=== PATIENT | female | born 1955 | race Caucasian/White ===

== ENCOUNTER 2017-04-23 07:07 | Day surgery (SDC) | payer BC ==
--- NOTE | 2017-04-21 07:13 | HP ---
HISTORY AND PHYSICAL: DATE OF ADMISSION/SURGERY: 04/23/17 SURGEON: Roxana Bains MD * (DICTATED BY JONATHON SEGOVIA) PROCEDURE: Left knee arthroscopy with partial medial meniscectomy, possible chondroplasty, possible synovectomy. CHIEF COMPLAINT: Left knee pain. HISTORY OF PRESENT ILLNESS: Ms. Richardson is a 62-year-old female who complains of left knee pain and MRI confirms medial meniscus tear and she has elected to proceed with surgery. PAST MEDICAL HISTORY: Hypertension and anxiety. PAST SURGICAL HISTORY: 1. . 2. D and C. CURRENT MEDICATIONS: 1. Metoprolol 100 mg daily. 2. Lisinopril 20 mg daily. 3. Vitamin D. 4. Calcium. ALLERGIES: None. FAMILY HISTORY: Hypertension and colon cancer. SOCIAL HISTORY: She is a 62-year-old female, she lives with her . She does not smoke or use drugs. Uses occasional alcohol. REVIEW OF SYSTEMS: A complete 14-point review of systems was reviewed with the patient, was all negative or noncontributory. PHYSICAL EXAMINATION GENERAL: She is well developed, well nourished, in no acute distress. VITAL SIGNS: She stands 5 feet 3 inches tall, weighs 177 pounds. Her blood pressure is 140/76. Her heart rate is 69. HEENT: Normocephalic, atraumatic. NECK: Supple. No palpable lymph nodes. PULMONARY: The lungs are clear to auscultation bilaterally. CARDIO: Regular rate and rhythm. Strong S1, S2. ABDOMEN: Soft, nontender, nondistended. NEUROLOGICAL: She is alert and oriented x3. Cranial nerves II through XII are intact. MUSCULOSKELETAL: Left lower extremity, the skin is intact. She has no open wounds or abrasions. She has some tenderness along the medial joint line, 10 to 125 degrees of flexion, positive Apley's and Madelaine's. No varus or valgus instability. Negative Christina. 2+ dorsalis pedis pulses, intact sensation and her lower extremities muscle group strengths are intact at 5/5. ASSESSMENT AND PLAN: Ms. Richardson is a 62-year-old female with complaints of left knee pain secondary to a medial meniscus tear. She has elected to proceed with surgery. The surgery is scheduled for 04/23/[address] Bains discussed the risks and benefits of the surgery at today's visit and all of her questions were answered. She will follow up with Dr. Bains 2 weeks after the surgery. JONATHON SEGOVIA [id number]/[facility] #: [id number] JACINDA
[~2017-04-23 07:07] MED LIST: Buffered Lidocaine 0.9% SYRIN* 5 ML/SYR SYRINGE INTRADERM ONE; DiMENhydriNATE IV* 50 MG/ML VIAL IV PUSH PRN; Famotidine IV* 10 MG/ML 2 ML (20 mg) IV ONE; Morphine INJ* 2 MG/ML 1 ML CARPUJECT IV PRN; Naloxone* 0.4 MG/ML 1 ML VIAL IV PRN; PROCHLORPERAZINE INJ 5 MG/ML 2 ML VIAL IV PRN; fentaNYL* 50 MCG/ML 2 ML VIAL (100 MCG VIAL) IV PRN; oxyCODONE/Acetamin 5/325 MG* TAB PO PRN
[2017-04-23] MEDS ORDERED: methylPREDNISolone ACETATE 80* 80 MG/ML 1 ML VIAL ONE (07:09)
[2017-04-23] MEDS ORDERED: EPINEPHRINE 1 MG/ML 1 ML VIAL ONE (07:09)
[2017-04-23] MEDS ORDERED: Bupivacaine 0.5% SDV PF* 10-30ML VIAL ONE (07:10)
[2017-04-23] MEDS ORDERED: Famotidine IV* 10 MG/ML 2 ML (20 mg) ONE (07:13)
[2017-04-23] MEDS ORDERED: Buffered Lidocaine 0.9% SYRIN* 5 ML/SYR SYRINGE ONE (07:14)
[2017-04-23] MEDS ORDERED: Midazolam* 1 MG/ML 10 ML VIAL (10 MG) ONE (07:37)
[2017-04-23] MEDS ORDERED: KETAMINE HCL* 50 MG/ML 10 ML VIAL ONE (07:37)
[2017-04-23] MEDS ORDERED: fentaNYL* 50 MCG/ML 2 ML VIAL (100 MCG VIAL) ONE ×2 (07:37→09:01)
[2017-04-23] MEDS ORDERED: ceFAZolin 2 GM PREMIX (*) 2 GM/50 ML BAG IVPB ONE (08:00)
[2017-04-23] MEDS ORDERED: Dexamethasone IV* 4 MG/ML 1 ML (4 MG) ONE (08:26)
[2017-04-23] MEDS ORDERED: Propofol* 10 MG/ML 20 ML BTL IV PUSH ONE (08:26)
[2017-04-23] MEDS ORDERED: Ketorolac INJ* 30 MG/ML 1 ML VIAL ONE (08:26)
[2017-04-23] MEDS ORDERED: Metoprolol Tartrate IV* 1 MG/ML 5 ML VIAL ONE (08:26)
[2017-04-23] MEDS ORDERED: Labetalol IV* 5 MG/ML 20 ML VIAL ONE (08:26)
[2017-04-23] MEDS ORDERED: Ondansetron INJ* 2 MG/ML VIAL ONE (08:26)
[2017-04-23] MEDS ORDERED: oxyCODONE/Acetamin 5/325 MG* TAB ONE (09:48)
[2017-04-23 10:17] VITALS: BP 154/87
--- NOTE | 2017-04-24 02:45 | OP ---
DATE OF OPERATION: 04/23/17 - [facility] DATE OF : 51 ATTENDING SURGEON: Roxana Bains MD HOOK TENDER: JONATHON Augustine. Mr. Wright did help throughout the procedure with preparation of the leg, wound retraction, manipulation of the knee, and wound closure. ANESTHESIOLOGIST: Dr. Downing. ANESTHESIA: General. PRE-OP DIAGNOSES: Left knee medial meniscal tear and mild degenerative osteoarthritis. POST-OP DIAGNOSES: Left knee displaced parrot beak type tear of the medial meniscus, mild to moderate degenerative osteoarthritis, inflamed medial plica. OPERATIVE PROCEDURE: Left knee arthroscopy, partial medial meniscectomy, and medial plica excision. COMPLICATIONS: None. SPECIMEN: None. ESTIMATED BLOOD LOSS: Less than 25 cc. BRIEF HISTORY/INDICATION: Ms. Richardson is a 62-year-old female with acute onsets of left knee pain and meniscal symptoms. MRI confirmed a medial meniscal tear. Plain film showed some arthritic changes. She failed conservative treatment and elected to undergo left knee arthroscopy due to continued pain and decreased quality of life. Informed consent was obtained from the patient. She understood the risks of surgery, included but were not limited to bleeding, infection, damage to nearby structures, continued pain, need for further surgery , retear of the meniscus, progression of arthritis and pain, stroke, heart attack, blood clot, and . She wished to proceed. INTRAOPERATIVE FINDINGS: Intraoperatively, the patient was noted to have a large, displaced parrot beak type tear of the mid portion of the medial meniscus that was flipped into the capsular recess. The tear was mainly in the white-red zone. She was also noted to have some grade 1 and 2 Outerbridge cartilage changes in the medial and patellofemoral compartment. She had a large inflamed medial plica that did impinge in patellofemoral compartment with range of motion. DESCRIPTION OF PROCEDURE: Ms. Richardson was identified in the preanesthesia unit. Her left lower extremity was marked as the correct operative side. Informed consent was signed and placed in the chart. The patient was taken to the operating room and placed under general anesthesia. Left lower extremity was prepped and draped in the usual sterile fashion. Preop time-out was made to correctly identify the patient's side and site. Appropriate perioperative antibiotics were given within 1 hour of incision. A standard 0.5 cm anterolateral portal incision was made with a 15 blade and carried down to the capsule. Trocar was introduced. As soon as the light and water sources were turned on, there was immediately visualization of the suprapatellar pouch. A tour of the knee joint was performed. Suprapatellar pouch had no obvious abnormalities. Patellofemoral compartment showed some minimal degenerative changes, these were grade 1 and 2 Outerbridge cartilage changes. Medial gutter showed an inflamed medial plica, this plica did impinge with range of motion during patellofemoral tracking. Medial gutter had no obvious loose bodies. The medial compartment showed some grade 1 and 2 Outerbridge cartilage changes of the medial femoral condyle cartilage. There was an obvious tear along the mid portion of the medial meniscus. ACL and PCL appeared to be intact. The knee was placed in a [id number] position. No significant degenerative changes in the lateral compartment. No obvious meniscal tear. Lateral gutter showed no visible plica or loose body. Under direct visualization, a medial portal incision was made with a 15 blade. A probe was introduced and a second tour of the knee joint was performed. ACL and PCL were intact. Probing of the medial meniscus immediately reduced a large parrot beak type tear into the medial compartment joint space. This had been flipped into the capsular recess. Straight biter and shaver were used to perform partial medial meniscectomy in the midportion of the medial meniscus largely in the white-red zone. Radiofrequency ablation wand was used to smooth this edge once the partial meniscectomy had been performed. Further probing of the medial meniscus showed no additional meniscal tears. Next, the shaver and radiofrequency ablation wand were used to conservatively excise the inflamed plica medially until there was no further impingement with range of motion of the knee. The knee was copiously irrigated with sterile saline. All instruments were removed. The incisions were closed using 3-0 nylon suture. Intra-articular injection of 80 mg Depo-Medrol and 6 cc of 0.25% Marcaine was placed in the knee joint. Incisions were covered with sterile Xeroform, 4x4s, and Webril. Steve wrap and cold pack were placed over this. The patient's anesthesia was reversed without difficulty. She was taken to the PACU in stable condition. Intended weightbearing will be weightbearing as tolerated. Intended DVT prophylaxis will be aspirin for 2 weeks. [id number]/[facility] #: [id number] MTDD
== END 2017-04-23 10:21 | disposition home or self-care (01) ==
LOC: OR 07:07
PROVIDERS: ATTEND Orthopaedic Surgery Adult Reconstructive Orthopaedic Surgery
DX: S83.242A Other tear of medial meniscus, current injury, left knee, initial encounter (principal); M67.52 Plica syndrome, left knee; I10 Essential (primary) hypertension; F41.9 Anxiety disorder, unspecified; X58.XXXA Exposure to other specified factors, initial encounter; Y92.9 Unspecified place or not applicable
CPT/HCPCS: A9270-GY; J0690; J1040; J1100; J1885; J2250; J2405; J2704; J3010; J3490

== ENCOUNTER 2018-08-26 17:43 | Emergency (ER) | payer MEDICARE, BC ==
[2018-08-26 18:36] VITALS: BP 183/114
--- NOTE | 2018-08-26 18:52 | ED ---
Throat Pain/Nasal Congestion - HPI Summary HPI Summary: pt presents to the ED with a 3 day hx of sinus pain and congestion. she states that she was not feeling well last week. she had a sore throat. she states that she is just not feeling well. - History of Current Complaint Chief Complaint: UCGeneralIllness Hx Obtained From: Patient Onset/Duration: Gradual Onset Severity: Mild - Allergies/Home Medications Allergies/Adverse Reactions: Allergies Allergy/AdvReac Type Severity Reaction Status Date / Time erythromycin base Allergy GI Upset Verified 08/26/18 18:28 Home Medications: Home Medications hydrOXYzine HCL TAB* [Atarax 10 MG TAB*] 10 mg PO BEDTIME PRN 08/26/18 [History Confirmed 08/26/18] PMH/Surg Hx/FS Hx/Imm Hx Previously Healthy: Yes Endocrine/Hematology History: Denies: Hx Diabetes Cardiovascular History: Reports: Hx Hypertension - controlled with meds Denies: Hx Pacemaker/ICD Respiratory History: Denies: Hx Asthma Sensory History: Reports: Hx Contacts or Glasses - glasses Denies: Hx Hearing Aid Opthamlomology History: Reports: Hx Contacts or Glasses - glasses Psychiatric History: Reports: Hx Anxiety Denies: Hx Panic Disorder - Cancer History Hx Chemotherapy: No - Surgical History Surgery Procedure, Year, and Place: C SECTION. D & C. Cataract surgery 06/2018 Hx Anesthesia Reactions: No Infectious Disease History: No Infectious Disease History: Denies: Traveled Outside the [place] in Last 30 Days - Social History Alcohol Use: Occasionally Substance Use Type: Reports: None Smoking Status (MU): Former Smoker Amount Used/How Often: smoked about 10 years 1/2ppd Review of Systems Constitutional: Negative Eyes: Negative Positive: Nasal Discharge, Other - sinus congestion, pain to sinuses Cardiovascular: Negative Respiratory: Negative Gastrointestinal: Negative Genitourinary: Negative Musculoskeletal: Negative Skin: Negative Neurological: Negative Psychological: Normal All Other Systems Reviewed And Are Negative: No Physical Exam Triage Information Reviewed: Yes Vital Signs On Initial Exam: Initial Vitals Temp Pulse Resp BP Pulse Ox 98.4 F 102 18 183/114 100 08/26/18 18:24 08/26/18 18:24 08/26/18 18:24 08/26/18 18:24 08/26/18 18:24 Vital Signs Reviewed: Yes Appearance: Positive: Well-Appearing, No Pain Distress, Well-Nourished Skin: Positive: Warm, Dry Head/Face: Positive: Other - tender to palpation of her frontal and maxillary sinuses Eyes: Positive: Normal, EOMI, ESTEFANIA ENT: Positive: Normal ENT inspection, Hearing grossly normal, Pharynx normal Neck: Positive: Supple, Nontender Respiratory/Lung Sounds: Positive: Clear to Auscultation, Breath Sounds Present Cardiovascular: Positive: Normal, RRR Abdomen Description: Positive: Nontender, Soft Bowel Sounds: Positive: Present Musculoskeletal: Positive: Normal, Strength/ROM Intact Neurological: Positive: Normal, Sensory/Motor Intact, Alert, Oriented to Person Place, Time, CN Intact II-III Psychiatric: Positive: Normal AVPU Assessment: Alert Diagnostics - Vital Signs Vital Signs Temp Pulse Resp BP Pulse Ox 08/26/18 18:24 98.4 F 102 18 183/114 100 - Laboratory Lab Statement: Any lab studies that have been ordered have been reviewed, and results considered in the medical decision making process. EENT Course/Dx - Course Course Of Treatment: pt presents with sinus congestion. she is markedly tender to her sinuses. she is congested on exam. will rx for abx to tx sinusitis. pt encouraged to f/u with pcp.. - Diagnoses Provider Diagnoses: Sinusitis Discharge - Sign-Out/Discharge Documenting (check all that apply): Patient Departure All imaging exams completed and their final reports reviewed: No Studies - Discharge Plan Condition: Stable Disposition: HOME Prescriptions: Amoxicillin 500 mg PO TID #21 capsule Patient Education Materials: Sinusitis (ED) Referrals: Rusty BRYANT,Nargis Lamar [Primary Care Provider] - Additional Instructions: take tylenol and motrin for pain. take sudafed for sinus congestion. I sent a prescription for an antibiotic to the pharmacy. follow up with your doctor. - Billing Disposition and Condition Condition: STABLE Disposition: Home
== END 2018-08-26 19:07 | disposition home or self-care (01) ==
LOC: UCCORT 17:43
DX: J32.9 Chronic sinusitis, unspecified (principal); Z88.1 Allergy status to other antibiotic agents; Z87.891 Personal history of nicotine dependence
CPT/HCPCS: 99212; G0463

== ENCOUNTER 2019-05-16 15:51 | Emergency (ER) | payer MEDICARE, BC ==
--- OUTSIDE RECORDS SUMMARY | 2019-05-16 15:59 | XMS REPORT ---
:1955 Author Organization [facility] Address [address] 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 12718917 uteri Problem Family history Z80.41 Active 833381135 of malignant neoplasm of ovary Problem Body mass index Z68.32 Active 717395972528434 (BMI) 32.0-32.9, adult Problem Essential I10 Active 44259730 (primary) hypertension Problem Subacute and N76.3 Active 839444626 chronic vulvitis ALLERGIES Substance Reaction Event Type Date Status erythromycin upset stomach Drug Allergy Mar, Active ENCOUNTERS Encounter Location Date Diagnosis [facility] [address], [place], [place] [id number] [facility] [address] Sep, [place] [id number] [facility] 103 Mar, Family history of OBGYN [facility], malignant neoplasm of [place] [id number] ovary Z80.41 [facility] 103 Mar, Family history of OBGYN [facility], malignant neoplasm of [place] [id number] ovary Z80.41 [facility] 103 Sep, Family history of OBGYN [facility], malignant neoplasm [place] [id number] ovary Z80.41 [facility] 103 Sep, Family history of [facility], malignant [place]oplasm [place] [id number] ovary Z80.41 [facility] July, [place], [place] [id number] [facility] [address] July, Encounter for [facility], gynecological examination [place] [id number] (general) (routine) without abnormal findings Z01.419 ; Encounter for screening for malignant neoplasm of colon Z12.11 and Family history of malignant neoplasm of ovary Z80.[address] Oct, Abnormal findings on [facility] [address] [place], diagnostic imaging of [place] [id number] other specified body structures R93.8 ; Polyp of corpus uteri N84.0 and Benign essential microscopic hematuria R31.1 [place] [address] Oct, Abnormal findings on [facility] [place] [place] [id number] diagnostic imaging of other specified body structures R93.8 ; Postmenopausal bleeding N95.0 and Polyp of corpus uteri N84.0 [facility] 103 Sep, Abnormal findings on [facility], diagnostic imaging of [place] [id number] other specified body structures R93.8 and Polyp of corpus uteri N84.0 [facility] 103 Sep, [place] [id number] [facility] 103 Sep, Abnormal findings on [facility], diagnostic imaging of [place] [id number] other specified body structures R93.8 and Polyp of corpus uteri N84.0 [facility] 103 Aug, Postmenopausal bleeding [facility], N95.0 [place] [id number] [facility] Aug, Abnormal findings on [facility], diagnostic imaging of [place] [id number] other specified body structures R93.8 [facility] 103 Aug, Abnormal findings on OBGYN [facility], diagnostic imaging of [place] [id number] other specified body structures R93.8 [facility] 103 Aug, Abnormal findings on OBGYN [facility], diagnostic imaging of [place] [id number] other specified body structures R93.8 [facility] 103 July, OBGYN [facility], [place] [id number] [facility] 103 July, Family history of OBGYN [facility], malignant neoplasm of [place] [id number] ovary Z80.41 ; Acetonuria R82.4 and Abnormal findings on diagnostic imaging of other specified body structures R93.8 [facility] 103 July, Family history of OBGYN [facility], malignant neoplasm of [place] [id number] ovary Z80.41 and Body mass index (BMI) 32.0-32.9, adult Z68.32 [facility] 103 July, Subacute and chronic OBGYN [facility], vulvitis N76.3 [place] [id number] [facility] 103 Jun, Encounter for [facility], gynecological examination [place] [id number] (general) (routine) with abnormal findings Z01.411 ; Encounter for other screening for malignant neoplasm of breast Z12.39 ; Encounter for screening for malignant neoplasm of colon Z12.11 ; Other abnormal findings in urine R82.99 ; Family history of malignant neoplasm of ovary Z80.41 ; Essential (primary) hypertension I10 ; Body mass index (BMI) 32.0-32.9, adult Z68.32 and Subacute and chronic vulvitis N76.3 [facility] 103 Apr, OBGYN [facility], [place] [id number] [facility] 103 Apr, Encounter for [facility], gynecological examination [place] [id number] (general) (routine) without abnormal findings Z01.419 ; Encounter for screening mammogram for malignant neoplasm of breast Z12.31 and Encounter for screening for malignant neoplasm of colon Z12.11 [facility] [facility] 103 Mar, OBG[place] [id number] [facility] 103 26 Apr, 2015 Encounter for OBGYN [facility], gynecological examination [place] [id number] (general) (routine) without abnormal findings Z01.419 ; Encounter for screening mammogram for malignant neoplasm of breast Z12.31 and Encounter for screening for malignant neoplasm of colon Z12.11 [place] [facility] 103 18 Apr, 2014 ROUTINE WELFARE CENTRE MANAGER EXAMINATION OBGYN [facility], V72.31 ; SCREEN MALIG [place] [id number] NEOP-COLON V76.51 and SCREEN MAMMOGRAM NEC V76.12 [facility] [address] Mar, OBG[place] [id number] [facility] 103 July, [facility] [place] [id number] [place] [address] July, [place], [place] [id number] [facility] 103 Jun, OBGYN [place] [id number] [facility] 103 16 Jun, 2013 Postmenopausal bleeding OBN [facility], 627.1 [place] [id number] [facility] 103 Jun, [place]BG[place] [id number] [facility] 103 Jun, [place] [id number] [facility] 103 May, [place] [id number] [facility] 103 May, [facility]27.[facility] [place] [id number] IMMUNIZATIONS No Known Immunizations SOCIAL HISTORY Never Assessed REASON FOR REFERRAL FUNCTIONAL STATUS PLAN OF CARE Activity Details Follow Up change annual & US 7-20 Reason: VITAL SIGNS Height 62 in 2019-04-04 Weight 178 lbs 2019-04-04 BMI 32.55 kg/m2 2019-04-04 Blood pressure systolic 126 mm Hg 2019-04-04 Blood pressure diastolic 84 mm Hg 2019-04-04 MEDICATIONS Medication Instructions Dosage Frequency Start End Duration Status Date Date lisinopril 40 orally once a 1 tab(s) 24h Active mg day Hydroxyzine 1tab Active 25mg metoprolol 100 orally once a 1 tab(s) 24h Active mg day Vitamin D3 1000 orally once a 1 tab(s) 24h Active intl units day calcium 500 mg orally QD 2 chewable 24h Active gummies PROCEDURES Procedure Date Ordered Result Body Site PATIENT NOT ELIG D/T ACTIVE DX HTN Apr 04, 2019 DOC MEDS VERIFIED W/PT OR RE Apr 04, 2019 PRES/ABSN URINE INCON ASSESS Apr 04, 2019 RESULTS No Results REASON FOR VISIT [facility] [place] Insurance Providers [facility] Member Patient Patient Patient Patient Patient Subscriber Subscriber Subscriber Group Insurance Plan Plan Plan Plan ID Relationship Address Phone Name Date of ID Name Date of No Type Insurance Insurance Insurance Coverage to Subscriber Address Phone Name Dates Medicare [phone] Medicare self Lacy [id number] [facility] [address] [employer] [phone] [employer] self Lacy [id number] [place] [id number] [address] MEDICAL (GENERAL) HISTORY Type Description Date Medical History obesity Medical History htn Medical History panic disorder Surgical History 1991 Surgical History hysteroscopy 2013 Surgical History colonoscopy 03/26/15 Surgical History LT knee torn mensicus repair 04/23/17 Surgical History left cataract 07/13/18 Surgical History right cataract 07/20/18 Hospitalization History childbirth 1988
--- OUTSIDE RECORDS SUMMARY | 2019-05-16 15:59 | XMS REPORT ---
:1955 Author Name sound, ultra Care Team Providers Name Role Phone sound, ultra Unavailable Unavailable PROBLEMS Type Condition ICD9-CM [id number] Onset Condition SNOMED Code Code Code Dates Status Problem Polyp of corpus N84.0 Active 37804696 uteri Problem Family history Z80.41 Active 147438873 of malignant neoplasm of ovary Problem Body mass index Z68.32 Active 291129155249347 (BMI) 32.0-32.9, adult Problem Essential I10 Active 47741610 (primary) hypertension Problem Subacute and N76.3 Active 432425263 chronic vulvitis ALLERGIES No Information ENCOUNTERS Encounter Location Date Diagnosis [facility] Sep, [place] [id number] [facility] Sep, [place] [id number] [facility] 103 Mar, Family history of OBGYN [facility], malignant neoplasm of [place] [id number] ovary Z80.41 [facility] 103 Mar, Family history of OBGYN [facility], malignant [place]oplasm [place] [id number] ovary Z80.41 [facility] 103 Sep, Family history of OBGYN [facility], malignant neoplasm of [place] [id number] ovary Z80.41 [facility] 103 Sep, Family history of OBGYN [facility], malignant neoplasm of [place] [id number] ovary Z80.41 [facility] 103 July, [place], [place] [id number] [facility] 103 July, Encounter for [facility], gynecological examination [place] [id number] (general) (routine) without abnormal findings Z01.419 ; Encounter for screening for malignant neoplasm of colon Z12.11 and Family history of malignant neoplasm of ovary Z80.[address] Oct, Abnormal findings on [facility] [address] [place], diagnostic imaging [place] [id number] other specified body structures R93.8 ; Polyp of corpus uteri N84.0 and Benign essential microscopic hematuria R31.1 [facility] [address] Oct, Abnormal findings on [facility] [place] [id number] diagnostic imaging of other specified body structures R93.8 ; Postmenopausal bleeding N95.0 and Polyp of corpus uteri N84.0 [facility] 103 Sep, Abnormal findings on [facility], diagnostic imaging [place] [id number] other specified body structures R93.8 and Polyp of corpus uteri N84.0 [facility] 103 Sep, [place], [place] [id number] [facility] 103 Sep, Abnormal findings on [facility], diagnostic imaging [place] [id number] other specified body structures R93.8 and Polyp of corpus uteri N84.0 [facility] 103 Aug, Postmenopausal bleeding [facility], N95.0 [place] [id number] [facility] 103 Aug, Abnormal findings on [facility], diagnostic imaging [place] [id number] other specified body structures R93.8 [facility] 103 Aug, Abnormal findings on [facility], diagnostic imaging [place] [id number] other specified body structures R93.8 [facility] 103 Aug, Abnormal findings on OBGYN [facility], diagnostic imaging of [place] [id number] other specified body structures R93.8 [facility] 103 July, [facility]BG[facility] [place] [id number] [facility] 103 July, Family history of OBGYN [facility], malignant neoplasm [place] [id number] ovary Z80.41 ; Acetonuria R82.4 and Abnormal findings on diagnostic imaging of other specified body structures R93.8 [facility] 103 July, Family history of OBGYN [facility], malignant neoplasm of [place] [id number] ovary Z80.41 and Body mass index (BMI) 32.0-32.9, adult Z68.32 [facility] 103 July, Subacute and chronic OBGYN [facility], vulvitis N76.3 [place] [id number] [facility] 103 Jun, Encounter for OBGYN [facility], gynecological examination [place] [id number] (general) (routine) with abnormal findings Z01.411 ; Encounter for other screening for malignant neoplasm of breast Z12.39 ; Encounter for screening for malignant neoplasm of colon Z12.11 ; Other abnormal findings in urine R82.99 ; Family history of malignant neoplasm of ovary Z80.41 ; Essential (primary) hypertension I10 ; Body mass index (BMI) 32.0-32.9, adult Z68.32 and Subacute and chronic vulvitis N76.3 [facility] 103 Apr, OBG[place] [id number] [facility] 103 Apr, Encounter for OBGYN [facility], gynecological examination [place] [id number] (general) (routine) without abnormal findings Z01.419 ; Encounter for screening mammogram for malignant neoplasm of breast Z12.31 and Encounter for screening for malignant neoplasm of colon Z12.11 [facility] 103 Mar, [place]BG[place] [id number] 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 103 July, Postmenopausal [place] [id number] [place] [address] July, [place], [place] [id number] [facility] 103 Jun, [place] [id number] [facility] 16 Jun, [facility] [id number] [facility] 103 Jun, [place] [id number] [facility] 103 Jun, [place] [id number] [facility] May, [place] [id number] [facility] 103 May, Postmenopausal [place] [address].[facility] [id number] IMMUNIZATIONS No Known Immunizations SOCIAL HISTORY Never Assessed REASON FOR REFERRAL FUNCTIONAL STATUS PLAN OF CARE VITAL SIGNS MEDICATIONS Unknown Medications PROCEDURES Procedure Date Ordered Result Body Site TRANSVAGINAL US, NON-OB Apr 04, 2019 RESULTS Name Result Date Reference Range Ultrasound : Pelvis REASON FOR VISIT pelvic US Insurance Providers [facility] Health Member Patient Patient Patient Patient Patient Subscriber Subscriber Subscriber Group Insurance Plan Plan Plan Plan ID Relationship Address Phone Name Date of ID Name Date of No Type Insurance Insurance Insurance Coverage to Subscriber Address Phone Name Dates Medicare [phone] Medicare self Lacy [id number] [facility] [address] [employer] [phone] Blue [employer] self Lacy [id number] Blue [id number] [address] MEDICAL (GENERAL) HISTORY Type Description Date Medical History obesity Medical History htn Medical History panic disorder Surgical History 1991 Surgical History hysteroscopy 2013 Surgical History colonoscopy 03/26/15 Surgical History LT knee torn mensicus repair 04/23/17 Surgical History left cataract 07/13/18 Surgical History right cataract 07/20/18 Hospitalization History childbirth 1988
--- OUTSIDE RECORDS SUMMARY | 2019-05-16 15:59 | XMS REPORT | Continuity of Care Document ---
:1955 External Reference #:[id number] Author Name Tawny Campbell M.D. Address [address] [facility] [address] [place] [address] Care Team Providers Name Role Phone Nargis Ojeda, P.A. - Physician Care Team Information [place] [employer] Roller Hand Problems Active Problems Provider Date Microscopic hematuria Tawny Campbell M.D. Onset: 08/31/2017 Social History Type Date Description Comments Sex Unknown Tobacco Use Start: Unknown Never Smoked Cigarettes Smoking Status Reviewed: 03/25/19 Never Smoked Cigarettes ETOH Use Occasionally consumes alcohol Tobacco Use Start: Unknown Patient denies history of smoking Recreational Drug Use Denies Drug Use Allergies, Adverse Reactions, Alerts Active Allergies Reaction Severity Comments Date Erythromycin 08/31/2017 Medications Active Medications SIG Qnty Indications Ordering Provider Date Calcium 500 + D Unknown [id number] Tablets Lisinopril 1 by mouth every Unknown 40mg Tablets day Vitamin D3 Complete 1 tablet daily. Unknown 1000Units Tablets Metoprolol Tartrate take one tablet Unknown 100mg by mouth once a Tablets day Hydroxyzine HCL Take One Tablet Unknown 50mg By Mouth AT Tablets Bedtime as Needed Immunizations Description No Information Available Vital Signs Date Vital Result Comment 03/31/2019 3:32pm BP Systolic Sitting Left Arm 152 mmHg BP Diastolic Sitting Left Arm 88 mmHg Body Temperature 97.4 F Heart Rate 88 /min Respiratory Rate 16 /min Height 63 inches 5'3" Weight 176.00 lb Pain Level 0 BMI (Body Mass Index) 31.2 kg/m2 BSA (Body Surface Area) 1.83 m2 [place] body weight in kilograms 52 kg O2 % BldC Oximetry 98 % 02/09/2019 3:54pm BP Systolic 175 mmHg BP Diastolic 94 mmHg Body Temperature 97.9 F Heart Rate 76 /min O2 % BldC Oximetry 97 % Results Test Acquired Date Facility Test Result H/L Range Note Urine Dipstick 03/31/2019 [facility] Ua Color Yellow Yellow Ua Clarity Clear Clear Ua Leuko Negative Negative Ua Nitrite Negative Negative Ua Urobilinogen 0.2 0.2 - 1.0 E.U./dL Ua Protein Negative Negative Ua PH 5.0 Low 6.5-7.5 Ua Blood Negative Negative Ua Specific [place] 1.030 1.010-1.030 Ua Ketones Negative Negative Ua Bilirubin Negative Negative Ua Glucose Negative Negative Procedures Date Code Description Status 02/09/2019 91489 Debridement Nails Any Method 6 Or More Completed 02/09/2019 30634 Pare Hyperkeratotic Lesion, > 4 Completed 12/01/2018 19102 Debridement Nails Any Method 6 Or More Completed 12/01/2018 90246 Pare Hyperkeratotic Lesion, > 4 Completed 03/26/2015 [id number] Colonoscopy Completed Medical Devices Description No Information Available Encounters Type Date Location Provider Dx Diagnosis Office Visit 03/31/2019 Urology Tawny Campbell, R31.21 Asymptomatic 3:30p M.D. microscopic hematuria Office Visit 12/01/2018 Podiatry Office Ant Adam B35.1 Tinea unguium 3:45p DPM L84 Corns and callosities L60.1 Onycholysis S90.211A Contusion of right great toe w damage to nail, init encntr W22.09xA Striking against other stationary object, initial encounter Assessments Date Code Description Provider 03/31/2019 R31.21 Asymptomatic microscopic hematuria Tawny Campbell M.D. 02/09/2019 B35.1 Tinea unguium Ant Adam, DP 02/09/2019 L84 Corns and callosities Ant Adam DP 12/01/2018 B35.1 Tinea unguium Ant Adam, DP 12/01/2018 L84 Corns and callosities Ant Adam, DP 12/01/2018 L60.1 Onycholysis Ant Adam, DP 12/01/2018 S90.211A Contusion of right great toe with damage to Ant Adam DPM nail, initial encounter 12/01/2018 W22.09xA Striking against other stationary object, Ant Adam DPM initial encounter Plan of Treatment 03/31/2019 - Tawny Campbell M.D.R31.21 Asymptomatic microscopic hematuriaComments:Patient currently has no evidence of microscopic hematuria and sh may efollow-up with me as needed Functional Status Description No Information Available Mental Status Description No Information Available Referrals Description No Information Available
[2019-05-16 16:48] VITALS: BP 170/87
--- NOTE | 2019-05-16 17:11 | UC ---
FLU HPI - HPI Summary HPI Summary: Patient is a 64yo female presenting with dry cough, nasal congestion, fever of 100, chills, and body aches x4 days. States symptoms not worsening but not improving either. States that her left upper back was hurting for "the last week or so" after she states she fell backwards into the counter after tripping over a case of soda. States she thought that pain was resolving but not is unsure because of body aches. Denies taking anything for symptom relief. 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 - History of Current Complaint Chief Complaint: UCGeneralIllness Stated Complaint: BACK PAIN/COUGH/FEVER/BODY ACHES Hx Obtained From: Patient Pain Intensity: 7 Pain Scale Used: 0-10 Numeric - Allergy/Home Medications Allergies/Adverse Reactions: Allergies Allergy/AdvReac Type Severity Reaction Status Date / Time erythromycin base Allergy GI Upset Verified 05/16/19 16:41 Home Medications: Home Medications Calcium Carbonate [Calcium] 1,000 mg PO QAM 04/21/17 [History Confirmed 05/16/19 ] Cholecalciferol (Vitamin D3) [Vitamin D] 1,000 unit PO QPM 04/21/17 [History Confirmed 05/16/19] Lisinopril [Zestril 20 MG-] 40 mg PO QAM 04/21/17 [History Confirmed 05/16/19] Metoprolol Tartrate [Lopressor] 100 mg PO QPM 04/21/17 [History Confirmed ] hydrOXYzine HCL TAB* [Atarax 10 MG TAB*] 10 mg PO BEDTIME PRN 08/26/18 [History Confirmed 05/16/19] Acetaminophen [Tylenol Extra Strength] 1,000 mg PO ONCE 05/16/19 [History Confirmed 05/16/19] PMH/Surg Hx/FS Hx/Imm Hx Cardiovascular History: Hypertension - Surgical History Surgical History: Yes Surgery Procedure, Year, and Place: . D&C x2. Cataract surgery 06/2018 - Family History Known Family History: Positive: Non-Contributory - Social History Alcohol Use: Occasionally Substance Use Type: None Smoking Status (MU): Former Smoker Amount Used/How Often: smoked about 10 years 1/2ppd When Did the Patient Quit Smoking/Using Tobacco: 1983 Review of Systems All Other Systems Reviewed And Are Negative: Yes Constitutional: Positive: Fever, Chills, Fatigue ENT: Positive: Sinus Congestion Respiratory: Positive: Cough. Negative: Shortness Of Breath Cardiovascular: Positive: Negative Gastrointestinal: Positive: Negative. Negative: Vomiting, Nausea Musculoskeletal: Positive: Myalgia Neurological/Mental Status: Positive: Negative Physical Exam - Summary Physical Exam Summary: Vital Signs Reviewed: Yes A+Ox3, no distress, well-appearing Eyes: Conjunctiva Clear ENT: Hearing grossly normal, TM x 2 clear, moist, uvula midline, no exudate, no erythema Neck: Positive: Supple Respiratory: Positive: No respiratory distress, No accessory muscle use + CTA throughout no w/r Cardiovascular: RRR nl s1, s2 no m/r Musculoskeletal Exam: JOHNS x 4 without difficulty Neurological: Positive: Alert Psychological: Positive: age appropriate behavior Skin: Positive: no rash, no ecchymosis Vital Signs: Initial Vital Signs Temp 99.9 F 05/16/19 16:42 Pulse 107 05/16/19 16:42 Resp 16 05/16/19 16:42 BP 170/87 05/16/19 16:42 Pulse Ox 99 05/16/19 16:42 Lab Results 05/16/19 Range/Units 17:16 Influenza A (Rapid) Positive H (Negative) Flu Course/Dx - Course Course Of Treatment: Positive rapid flu A. Educated patient on influenza and symptomatic treatment. Instructed to follow up with pcp for any new or worsening symptoms. Patient voiced understanding and agreed with treatment plan. - Differential Dx/Diagnosis Provider Diagnosis: Influenza A Discharge ED - Sign-Out/Discharge Documenting (check all that apply): Patient Departure All imaging exams completed and their final reports reviewed: No Studies - Discharge Plan Condition: Stable Disposition: HOME Patient Education Materials: Influenza (ED) Referrals: Nargis Ojeda PA [Primary Care Provider] - If Needed Additional Instructions: As discussed, you tested positive for influenza A today. You may take over the counter cold and flu medication as directed for symptom relief. Get plenty of rest and increase your fluid intake. Follow up with your primary care provider if symptoms do not improve within 7 days. Go to the emergency room with any new or worsening symptoms. - Billing Disposition and Condition Condition: STABLE Disposition: Home - Attestation Statements Provider Attestation: I was available for consult. This patient was seen by the LILA. The patient was not presented to, seen by, or examined by me. -Xin
[2019-05-16 17:20] LABS: Influenza A Molecular POSITIVE (Negative)
== END 2019-05-16 17:39 | disposition home or self-care (01) ==
LOC: UCCORT 15:51
DX: J10.1 Influenza due to other identified influenza virus with other respiratory manifestations (principal); I10 Essential (primary) hypertension; Z88.1 Allergy status to other antibiotic agents; Z79.899 Other long term (current) drug therapy; Z87.891 Personal history of nicotine dependence
CPT/HCPCS: 99211; G0463